=== PATIENT | female | born 1985 | race Two or more races ===

== ENCOUNTER 2025-06-06 08:00 | Inpatient (IN) | payer OTHER ==
[~2025-06-06] VITALS: Ht 162.6 cm; Wt 88.5 kg
[2025-06-06] MEDS ORDERED: CRESTOR40 MG (09:50)
[2025-06-06] MEDS ORDERED: LEXAPRO5 MG (09:50)
[2025-06-06] MEDS ORDERED: RESTORIL30 M1 PO (09:51)
[2025-06-06] MEDS ORDERED: RELAFEN DS1000 MG (09:51)
[2025-06-06] MEDS ORDERED: TRADJENTA5 MG PO (09:51)
[2025-06-06] MEDS ORDERED: BACTRIM 400-801 EACH (09:52)
[2025-06-06 09:53] VITALS: BP 118/72
[2025-06-06 10:05] VITALS: BP 119/74
[2025-06-06 11:46] LABS: BASO % 1.0 % (0.1-1.2); EOS # 0.06 (0.04-0.54); EOS % 0.8 % (0.7-7.0); LYMPH # 2.70 (1.18-3.74); LYMPH % 34.2 % (19.3-53.1); MEAN PLATELET VOLUME 9.40 fl (9.4-12.4); MONO # 0.39 (0.24-0.82); MONO % 4.9 % (4.7-12.5); NEUT # 4.64 (1.56-6.13); NEUT % 58.8 % (34.0-71.1); RED CELL DISTRIBUTION WIDTH 12.9 % (11.6-14.4)
[2025-06-06 12:08] LABS: INR 0.96
[2025-06-06 12:23] LABS: ALT/SGPT 22.0 U/L (12-78); AST/SGOT 16.0 U/L (15-37); BILIRUBIN TOTAL 0.91 mg/dL (0.3-1.2); BUN CREA RATIO 9.0 (7.0-25.0); CREATININE SERUM 0.81 mg/dL (0.55-1.02); GFR 77.92; GLOBULINA 3.6 G/DL (2.4-3.5); GLUCOSE FASTING 96.0 mg/dL (65-100); OSMOLALITY SERUM 275.0 MOSM/KG (275-295)
[2025-06-14] MEDS ORDERED: KETOROLAC TROMETHAMINE 30 MG VIAL IV SCH (22:27)
[2025-06-14] MEDS ORDERED: GABAPENTIN 300 MG CAPSULE PO SCH (22:28)
[2025-06-14] MEDS ORDERED: ONDANSETRON HCL 2 MG/ML VIAL IV PRN (22:30)
[2025-06-14] MEDS ORDERED: RINGERS SOLUTION,LACTATED 1,000 ML IV SCH (22:30)
[2025-06-14] MEDS ORDERED: INSULIN LISPRO 1,000 UNIT/10 ML UNITS SUBCUTANEO PRN (22:45)
[2025-06-14] MEDS ORDERED: DEXTROSE 50 % IN WATER 0.5 G/ML DISP.SYRIN IV PRN (22:45)
[2025-06-15] MEDS ORDERED: ACETAMINOPHEN 500 MG GEL..CAP PO SCH
[2025-06-15 01:16] VITALS: BP 118/72
[2025-06-15 06:35] LABS: BASO % 0.2 % (0.1-1.2); EOS # 0.01 (0.04-0.54); EOS % 0.1 % (0.7-7.0); LYMPH # 1.32 (1.18-3.74); LYMPH % 10.3 % (19.3-53.1); MEAN PLATELET VOLUME 9.20 fl (9.4-12.4); MONO # 0.46 (0.24-0.82); MONO % 3.6 % (4.7-12.5); NEUT # 10.96 (1.56-6.13); NEUT % 85.5 % (34.0-71.1); RED CELL DISTRIBUTION WIDTH 12.2 % (11.6-14.4)
[2025-06-15 07:55] VITALS: BP 99/62
[2025-06-15] MEDS ORDERED: FAMOTIDINE/PF 20 MG in 0.9 % SODIUM CHLORIDE 8 ML IV PUSH SCH (09:00)
== END 2025-06-15 10:28 | disposition home or self-care (01) | DRG 743 ==
LOC: OB/GYN 06-14 08:00 → O/R 06-14 11:00 → OB/GYN 06-14 18:00
PROVIDERS: ADMIT Student in an Organized Health Care Education/Training Program; ATTEND Student in an Organized Health Care Education/Training Program
PROC: 0UT74ZZ Resection of Bilateral Fallopian Tubes, Percutaneous Endoscopic Approach (ICD-10-PCS; 2025-06-14)
PROC: 0UB04ZZ Excision of Right Ovary, Percutaneous Endoscopic Approach (ICD-10-PCS; 2025-06-14)
PROC: 0DBW4ZX Excision of Peritoneum, Percutaneous Endoscopic Approach, Diagnostic (ICD-10-PCS; 2025-06-14)
PROC: 0TJB8ZZ Inspection of Bladder, Via Natural or Artificial Opening Endoscopic (ICD-10-PCS; 2025-06-14)
PROC: 0UT94ZZ Resection of Uterus, Percutaneous Endoscopic Approach (ICD-10-PCS; principal; 2025-06-14 17:00)
DX: D25.9 Leiomyoma of uterus, unspecified (principal); D27.0 Benign neoplasm of right ovary; N93.9 Abnormal uterine and vaginal bleeding, unspecified; N72 Inflammatory disease of cervix uteri; N80.03 Adenomyosis of the uterus; N80.319 Endometriosis of the anterior cul-de-sac, unspecified depth